=== PATIENT | male | born 1990 | race Caucasian/White ===

== ENCOUNTER → 2017-11-03 11:18 | Outpatient (CLI) | payer OTHER, SELFPAY ==
--- NOTE | 2017-11-03 13:45 | DI.MRI.S_ITS ---
PROCEDURE: MR CHEST WO/W CON INDICATIONS: 27 year-old male with palpable mass at the right scapular border. TECHNIQUE: Noncontrast coronal T1 spin echo and STIR, sagittal T1 spin echo with fat saturation and STIR, axial T1 spin echo and T2 fast spin echo with fat saturation. After the administration of contrast, axial/sagittal/coronal T1 spin echo with fat saturation through the right posterior chest wall and scapula. COMPARISON: [facility], , CHEST, 10/11/2017, 11:07. FINDINGS: Skin marker denotes the site of clinical concern. Image quality: Excellent. Bones: There is mild mid thoracic spine dextroscoliosis. The visualized bone marrow demonstrates normal signal on all sequences. The overlying cortex appears intact. No abnormal intraosseous enhancement. Soft tissues: No soft tissue masses are visualized. The scanned muscles demonstrate normal overall bulk and internal signal. Subcutaneous tissues appear normal as well. No abnormal soft tissue enhancement. IMPRESSION: 1. No MR imaging correlate with palpable mass at the right scapular border. 2. Mild mid thoracic spine dextroscoliosis. Dictated by: Patrick Escudero M.D. on 11/03/2017 at 13:35 Approved by: Patrick Escudero M.D. on 11/03/2017 at 13:44
== END ==
PROVIDERS: Visit Provider Specialist
DX: R22.31 Localized swelling, mass and lump, right upper limb (principal); M41.84 Other forms of scoliosis, thoracic region
CPT/HCPCS: 71552; A9579